=== PATIENT | female | born 1970 | race Caucasian/White ===

== ENCOUNTER → 2017-02-21 | Day surgery (SDC) | payer SELFPAY ==
[2017-02-16 08:11] VITALS: BMI 28.3
[~2017-02-21] MED LIST: BACITRACIN 15 GM TUBE TOPICAL OINTMENT ONE; GLYCOPYRROLATE 0.2 MG/1 ML VIAL ONE; HEPARIN NA (PORCINE) 5,000 UNITS/ML 1ML VIAL ONE; HYDROmorphone HCL CARPU-JECT 1 MG/1 ML DISP.SYRIN IVPUSH PRN; LACTATED RINGERS SOLUTION 1,000 ML IV SCH; LIDOCAINE HCL 1%, 10 MG/ML (20ML VIAL) ONE; MEPERIDINE HCL CARPU-JECT 25 MG/1 ML DISP.SYRIN IVPUSH ONE; MIDAZOLAM HCL 2 MG/2 ML SINGLE DOSE VIAL ONE; NEOSTIGMINE METHYLSULFATE 0.5 MG/ML - 10 ML MDV ONE; ONDANSETRON 4 MG/2 ML VIAL IVPB PRN; ONDANSETRON 4 MG/2 ML VIAL IVPUSH PRN; PROMETHAZINE HCL 25 MG/1 ML VIAL IVPUSH PRN; PROPOFOL 20 ML ONE; ROCURONIUM BROMIDE 50 MG/5 ML VIAL ONE; SUCCINYLCHOLINE CHLORIDE 200 MG/10 ML VIAL ONE; oxyCODONE HCL 5 MG TABLET PO PRN
--- NOTE | 2017-02-21 18:44 | OP ---
Operative Note - Note: Operative Date: 02/21/17 Pre-Operative Diagnosis: cosmetic Operation: liposuction to thighs and flanks Post-Operative Diagnosis: Same as Pre-op Surgeon: Saúl Chau Anesthesia: General Estimated Blood Loss (mls): 100
[2017-02-21 21:53] VITALS: BP 129/66; PULSE 93; TEMP 97.7
--- NOTE | 2017-02-22 13:46 | OP ---
DATE OF OPERATION: 02/21/2017 TITLE OF PROCEDURE: Liposuction to bilateral inner thighs, lateral thighs, knees, flanks, with small touch-up volume fat transfer to bilateral hips. ATTENDING SURGEON: Saúl Chau MD ANESTHESIA: General endotracheal anesthesia. Patient is seen in the holding area; counseled on all risks, benefits, and alternatives to the procedure; understands and agrees to proceed with the procedure. Patient is given 5000 units of subcutaneous heparin preoperatively. Sequential compression stockings and ANNAMARIA hose are applied. She is then brought to the operating room. A gram of Ancef is given preoperatively. She is prepped and draped in standard surgical fashion after anesthesia is induced and is started in a supine position. All pressure points are carefully padded. A Tinoco catheter is placed. Timeout is called. Patient, procedure, site, and side are verified. The procedure is performed in accordance with SAFE liposuction technique with both pre-suction and post-suction tunneling. The areas on the anterior portion of the patient are infiltrated with wetting solution. The first 2 bags of wetting solution contain lidocaine. These bags have 20 mL of 1% lidocaine plain and 1 ampule of 1:1000 epinephrine. All the additional bags have only 1 ampule of 1:1000 epinephrine with no lidocaine. On the patient's anterior, a total of 2800 mL of wetting solution is infiltrated across the following areas: The anterior thighs, lateral thighs, medial thighs, knees, and flanks. After infiltration is completed, a full 25 minutes are waited prior to liposuction. Pre-tunneling with a 4-mm basket-tip cannula is performed widely. After which, liposuction is then performed in the following areas on the right using a 3-mm cannula without power assistance. On the left knee, 100 mL of liposuction aspirate; on the right knee, 100 mL of liposuction aspirate. The remaining areas are liposuctioned with a 4-mm cannula using a power-assisted system. The left thigh 325 mL, the right side 375 mL. The left lateral thigh 100 mL, the right lateral thigh 100 mL. The left flank 150 mL, the right flank 150 mL. The left medial thigh 250 mL, the right medial thigh 250 mL. After this was completed, post-tunneling is performed with a 4-mm basket-tip cannula for smoothing and contour. The endpoint of liposuction is the appearance of blood in the liposuction aspirate as well as smooth, even contour throughout by pinch test. The liposuction incisions which were 1-cm incisions placed in multiple locations for access are closed with a series of interrupted 5-0 nylon suture. The incisions are dressed with Tegaderm and 2 x 2 gauze. With all anesthesia assistance and surgical assistance, the drapes are removed. The patient is then prepared to be turned to a prone position. This is done as per standard protocol. All positioning aids are used as needed including chest rolls, knee padding, arm padding. Position is carefully checked by surgical and anesthesia teams, and once this is completed, she is re-draped and prepped in preparation for surgery on the patient's posterior surface. At this point, infiltration with the wetting solution is performed. The wetting solution on the posterior surface is only for every liter of normal saline 1 ampule of 1:1000 epinephrine; no lidocaine is used. The areas that are treated with wetting solution are each of the left and right lateral thighs, left and right medial thigh, and the left and right flank. After 25 minutes of waiting for the hemostatic effect, liposuction is performed first with 3-mm cannulas and power-assisted technique to each of the lateral thighs. A total of 200 mL is removed from each lateral thigh from the posterior position. On the inner thighs, on the right inner thigh, from the posterior access, a total of 450 mL is removed, and on the left thigh, a total of 350 mL inner thigh is removed. On the right flank, a total of 450 mL is removed. In the left flank, a total of 250 mL is removed. Again, endpoint is smooth, even contour and the appearance of blood within the liposuction aspirate. On the right lateral buttock where a preoperative indentation is noted, the fat is re-injected after being gravity filtrated and settled using a Rapid RMS fat harvesting system. A 2-mm Cho tip cannula is used for fat injection. This is performed in Cho technique with microdroplets. The right lateral buttock receives a total of 45 mL of fat injection. The left lateral buttock using the same technique receives a total of 22 mL of fat injection. This is a minimal amount of fat injections to improve the subtle contour and treat her preoperative deformity; most of which was adequately treated with the liposuction. At the completion of this, drapes are removed. The injection sites are closed with 5-0 nylon suture. All incision sites are dressed with eye patch and Tegaderm, and the compression garment is applied. Patient then transferred back to a supine position, extubated, awoke from anesthesia, transferred to recovery room without complication. Lois ORTEZ/[id number]
== END | disposition home or self-care (01) ==
LOC: FASU 11:43
PROVIDERS: ATTEND Plastic Surgery
PROC: 0J0L3ZZ Alteration of Right Upper Leg Subcutaneous Tissue and Fascia, Percutaneous Approach (ICD-10-PCS; 2017-02-21)
PROC: 0J0M3ZZ Alteration of Left Upper Leg Subcutaneous Tissue and Fascia, Percutaneous Approach (ICD-10-PCS; 2017-02-21)
PROC: 0J0N3ZZ Alteration of Right Lower Leg Subcutaneous Tissue and Fascia, Percutaneous Approach (ICD-10-PCS; 2017-02-21)
PROC: 0J083ZZ Alteration of Abdomen Subcutaneous Tissue and Fascia, Percutaneous Approach (ICD-10-PCS; 2017-02-21)
PROC: 0J0P3ZZ Alteration of Left Lower Leg Subcutaneous Tissue and Fascia, Percutaneous Approach (ICD-10-PCS; principal; 2017-02-21 13:55)
DX: Z41.1 Encounter for cosmetic surgery (principal)
CPT/HCPCS: 84703; 94760; J1644

== ENCOUNTER 2018-01-13 07:53 | Day surgery (SDC) | payer SELFPAY ==
[2018-01-04 10:26] VITALS: BMI 29.2
[2018-01-13] MEDS ORDERED: HEPARIN NA (PORCINE) 5,000 UNITS/ML 1ML VIAL ONE (08:24)
[2018-01-13] MEDS ORDERED: MIDAZOLAM HCL 2 MG/2 ML SINGLE DOSE VIAL ONE (09:39)
[2018-01-13] MEDS ORDERED: LIDOCAINE 1% P/F 10 MG/ML VIAL ONE (09:40)
[2018-01-13] MEDS ORDERED: EPINEPHrine 1:1,000 1 MG/1 ML - 30ML VIAL (INJECTION) ONE (09:40)
[2018-01-13] MEDS ORDERED: LIDOCAINE HCL 1%, 10 MG/ML (20ML VIAL) ONE (09:41)
[2018-01-13] MEDS ORDERED: EPINEPHrine/PF 1 MG/1 ML (1:1,000) AMPULE ONE (09:41)
[2018-01-13] MEDS ORDERED: BUPIVACAINE HCL/PF 2.5 MG/ML - 30 ML VIAL IJ ONE (09:42)
[2018-01-13] MEDS ORDERED: ONDANSETRON 4 MG/2 ML VIAL ONE (10:12)
[2018-01-13] MEDS ORDERED: LIDOCAINE HCL/PF 2% SDV 5ML VIAL ONE (10:12)
[2018-01-13] MEDS ORDERED: DEXAMETHASONE SOD PHOSPHATE 4 MG/1 ML VIAL ONE (10:12)
[2018-01-13] MEDS ORDERED: PROPOFOL 20 ML ONE ×4 (10:20→12:46)
[2018-01-13] MEDS ORDERED: ROCURONIUM BROMIDE 50 MG/5 ML VIAL ONE ×2 (10:21→11:50)
[2018-01-13] MEDS ORDERED: ceFAZolin SODIUM 1 GM VIAL ONE (10:35)
[2018-01-13] MEDS ORDERED: SCOPOLAMINE HYDROBROMIDE 1 PATCH PATCH.TD72 ONE (12:30)
[2018-01-13] MEDS ORDERED: fentaNYL CITRATE 250 MCG/5 ML VIAL ONE (12:46)
[2018-01-13] MEDS ORDERED: GUM MASTIC/STORAX/MSAL/ALCOHOL 1 DRP DROPSBTL MC ONE (14:43)
[2018-01-13] MEDS ORDERED: BACITRACIN 15 GM TUBE TOPICAL OINTMENT ONE (14:44)
[2018-01-13] MEDS ORDERED: PROMETHAZINE HCL 25 MG/1 ML VIAL IVPUSH PRN (15:13)
[2018-01-13] MEDS ORDERED: oxyCODONE HCL 5 MG TABLET PO PRN ×4 (15:13→16:05)
[2018-01-13] MEDS ORDERED: ONDANSETRON 4 MG/2 ML VIAL IVPUSH PRN (15:13)
[2018-01-13] MEDS ORDERED: ONDANSETRON 4 MG/2 ML VIAL IVPB PRN ×2 (15:20→16:05)
--- NOTE | 2018-01-13 15:24 | OP ---
Operative Note - Note: Operative Date: 01/13/18 Pre-Operative Diagnosis: breast ptosis and abdominal deformity Operation: bilateral breast reduction with liposuction to abdomen and axillae and revision of abdomenoplasty Post-Operative Diagnosis: Same as Pre-op Surgeon: Saúl Chau Tester Wafer Substrate: Jesus Alberto Araujo Anesthesia: General Operative Report Dictated: Yes
[2018-01-13] MEDS ORDERED: ONDANSETRON 4 MG/2 ML VIAL IVPUSH ONE (15:29)
[2018-01-13] MEDS ORDERED: LACTATED RINGERS SOLUTION 1,000 ML IV SCH ×2 (15:30→16:45)
[2018-01-13] MEDS ORDERED: MORPHINE SULFATE 2 MG/ML VIAL IVPUSH PRN (16:05)
[2018-01-13] MEDS: oxyCODONE HCL 5 MG TABLET PO PRN ×2 (17:26→18:58)
[2018-01-13] MEDS ORDERED: morphine CARPU-JECT 2 MG/1 ML DISP.SYRIN IVPUSH PRN (18:58)
--- NOTE | 2018-01-13 21:06 | OP ---
DATE OF OPERATION: 01/13/2018 TITLE OF PROCEDURE: Bilateral breast reduction with axillary liposuction, abdominal liposuction, revision of previous abdominoplasty with mons pubis plication. ATTENDING SURGEON: Saúl Chau MD MIRROR MAKER: LAURITA Reynoso The patient is marked in the holding area preoperatively, awake, aware of incisions and resulting scars. Multiple options with regard to addressing the abdomen were discussed, and the decision for liposuction with a mons pubis reduction is decided. The patient is given a gram of Ancef preoperatively. She is brought to the operating room, placed in a supine position. TEDS and SCDs are applied. The nipples are positioned at 22 cm from the sternal notch, which is not elevating the nipples at all from their preoperative position. A modified Bueno-type pattern, inverted-T mastopexy is planned. Patient is prepped and draped in standard surgical fashion. A timeout is called. Patient, procedure, sites, and sides are verified. Attention is first addressed to the left breast. The bilateral nipple areolas are traced with a 42-mm cookie cutter. The bipedicle technique is planned, maintaining dermoglandular attachments to the superior and inferior pedicle. After de-epithelialization of the pedicle with the exception of the nipple-areolar complex, skin flaps are elevated medially and laterally with no superior elevation. Through the medial elevation, dissection is carried down to the level of the chest wall where an area of pectoralis fascia is able to be identified for pexying of the pedicle superiorly. Breast and skin tissue are excised inferomedially and inferolaterally. Significantly more breast tissue is excised laterally than medially. The pedicle is then pexied with a single 2-0 Vicryl suture to a location on the anterior pectoralis fascia superomedially. This creates an excellent superomedial fullness. The resected weight on the left breast is 136 g. Hemostasis is meticulously achieved. The skin is tailor tacked, and attention is then directed toward the right side where a mirror-image procedure is performed. The resected weight on the right side is identical, 136 g. With the patient brought to a seated upright position, there is excellent symmetry of size, shape, and position of the breasts. With the skin tailor tacked, attention is then directed toward the abdomen. As discussed, an incision is made along the existing abdominoplasty incision in the midline overlying the mons pubis, and dissection is then carried down to the level of the abdominal wall fascia. In this area, there is scar tissue from a previous gynecologic procedure, which is removed and contoured. The fascia is maintained entirely intact. A midline plication is then performed from the inferior extent of the mons pubis past the abdominoplasty scar on the fascia. This is done with a series of interrupted, buried, [id number] No. 1 Prolene suture. Care is taken to prevent any kind of contour deformity on the abdomen. The mons pubis is likewise thinned of subcutaneous fat. Hemostasis is meticulously achieved. A series of quilting sutures is then applied between the Pascual tissue and the abdominal wall fascia to close space. At this point, the infiltration solution is then infiltrated into the abdomen. A total of 600 mL of wetting solution is infiltrated throughout the abdomen, and 400 mL are infiltrated into each axilla. The wetting solution is a liter of normal saline with 1 ampule of 1:1000 epinephrine and 20 mL of 1% lidocaine plain. Thirty-five minutes are given for the wetting solution for hemostatic effect. While this is being done, a dog ear on the right extent of the pre-existing abdominoplasty incision is removed, reoriented, and closed with a series of interrupted, buried, deep dermal 3-0 Monocryl suture, followed by a running subcuticular 3-0 Monocryl suture. The breasts are closed in a likewise fashion with a series of interrupted, buried, deep dermal 3-0 Monocryl suture around the circumference of the areola as well as on the vertical limb, followed by a running subcuticular 3-0 Monocryl suture along the vertical limb and a running subcuticular 4-0 Monocryl suture around the areola. The inverted T point is closed with a half-buried mattress 2-0 nylon suture. Once this is completed, liposuction is performed. The SAFE technique of liposuction is performed with pre- and post-tunneling using a 4-mm basket-tip cannula without suction. This is done to areas wide of the liposuction area. Once this is completed, the abdomen is addressed with a 3-mm cannula using a [employer] power-assisted system. A total of 100 mL of lipoaspirate is aspirated out of the abdomen, which is really targeted liposuction to 2 separate areas of fatty contour abnormalities. This is followed by post-tunneling with a 4-mm basket-tip cannula, again widely a field of the liposuctioned areas. From a lateral portal for the liposuction, a drain is placed into the abdominoplasty revision wound. This is a size 10, flat NGOC drain, secured with a 2-0 nylon drain suture. The abdominoplasty revision wound is closed with a series of interrupted quilting suture as described with 2-0 Vicryl suture. The deep Pascual layer closure is performed with a series of interrupted, buried 2-0 Vicryl suture. Skin is then closed with a series of interrupted, buried, deep dermal 3-0 Monocryl suture, followed by a running subcuticular 3-0 Monocryl suture. The remainder of the liposuction in the axillae is performed using a 4-mm cannula, and 200 mL of lipoaspirate are yielded from each axilla. Endpoint is a smooth, even contour and the appearance of blood within the lipoaspirate. Because of the axillary liposuction and the fact that there is lateral space on the breast reductions, a small, size 10, flat NGOC drain is brought out through the lateral extent of each breast closure. The breast closures are then done with a series of interrupted, buried, deep dermal 3-0 Monocryl suture, followed by a running subcuticular 3-0 Monocryl suture. Nipples are pink and viable at the end of the procedure. Several 5-0 fast-absorbing plain gut sutures are used along the areolas. All incisions are dressed with Steri-Strips, ABD gauze. A compressive fitted garment is then applied. Drains are placed to bulb suction. She is awoken from anesthesia, transferred to Recovery without complication. SAÚL CHAU M.D. [id number]
[2018-01-13] MEDS ORDERED: DOCUSATE SODIUM 100 MG CAPSULE (FP) PO ONE (23:00)
[2018-01-14 06:55] VITALS: BP 98/50; PULSE 68; TEMP 97.7
[2018-01-14] MEDS ORDERED: CYANOCOBALAMIN 1,000 MCG TABLET (FP) PO SCH (10:00)
--- NOTE | 2018-01-18 16:25 | PATH ---
Surgical Pathology Report Patient Name: SETH HOOKS [facility]. Rec. #: [id number] /Age/Gender: 1970 (Age: 47) / F Account: [id number] Location: [facility] AMBULATORY Taken: 01/13/2018 Received: 01/13/2018 Reported: 01/18/2018 Physicians: Saúl Chau Specimen(s) Received A: LEFT SKIN AND BREAST TISSUE B: RIGHT SKIN AND BREAST TISSUE Clinical History Cosmetic Final Diagnosis A. BREAST TISSUE AND SKIN, LEFT, EXCISION: BENIGN BREAST TISSUE. SKIN WITH NO PATHOLOGIC FINDINGS. B. BREAST TISSUE AND SKIN, RIGHT, EXCISION: BENIGN BREAST TISSUE. SKIN WITH NO PATHOLOGIC FINDINGS. Electronically Signed Bhumika Nath M.D. Gross Description A. Received in formalin labeled "left skin and breast tissue," is a 105 g, 11.5 x 11.0 x 2.3 cm aggregate of multiple unoriented portions of fibroadipose tissue and dang, unremarkable skin. Sectioning reveals multiple foci of dense, white fibrous tissue. Urologic Nurse sections are submitted in 2 cassettes. B received in formalin labeled "right-skin and breast tissue," is a 106 g, 12.0 x 10.5 x 2.5 cm aggregate of multiple unoriented portions of fibroadipose tissue and skin. Sectioning reveals multiple foci of dense, white fibrous tissue. Urologic Nurse sections are submitted in 2 cassettes. 01/16/2018 saudi01/16/2018
== END 2018-01-14 10:00 | disposition home or self-care (01) ==
LOC: FASU 07:53 → FM/S 07:53 → FASU 01-14 10:00
PROVIDERS: ATTEND Plastic Surgery
PROC: 0H0V3ZZ Alteration of Bilateral Breast, Percutaneous Approach (ICD-10-PCS; 2018-01-13)
PROC: 0J083ZZ Alteration of Abdomen Subcutaneous Tissue and Fascia, Percutaneous Approach (ICD-10-PCS; 2018-01-13)
PROC: 0H0V0ZZ Alteration of Bilateral Breast, Open Approach (ICD-10-PCS; principal; 2018-01-13 09:30)
PROC: 0J080ZZ Alteration of Abdomen Subcutaneous Tissue and Fascia, Open Approach (ICD-10-PCS; 2018-01-13 09:30)
DX: Z41.1 Encounter for cosmetic surgery (principal)
CPT/HCPCS: 84703; 88304-TC; 94760; J1644